=== PATIENT | male | born 1935 | race Caucasian/White ===

== ENCOUNTER → 2017-01-08 | Outpatient (CLI) | payer MEDICARE, BC ==
[~2017-01-08] MED LIST: ACTOS DPS30 MG PO; LASIX DPS40 MG PO; PRAMIPEXOLE DI0.5 MG PO; PROSCAR DPS5 MG PO; ZYLOPRIM-DPS100 MG PO
== END | disposition home or self-care (01) ==
LOC: PTH.S 01-07 09:30 → RAD.S 01-07 10:00 → PTH.S 01-07 10:30
DX: C64.2 Malignant neoplasm of left kidney, except renal pelvis (principal)